=== PATIENT | female | born 1990 | race Two or more races ===

== ENCOUNTER 2017-11-02 17:00 | Emergency (ER) | payer MEDICAID ==
--- NOTE | 2017-11-02 17:20 | ER Document Report ---
ED GI/ - General Chief Complaint: Abdominal Pain Stated Complaint: ABDOMINAL PAIN Time Seen by Provider: 11/02/17 17:20 Mode of Arrival: Ambulatory Information source: Patient Notes: 27-year-old smoker that smoker that smokes marijuana daily is complaining of upper abdominal pain and or low abdominal pain with nausea for 3 months, constant, also has some low back spasms. She came in today because she thought that it would go away and she cannot see her primary care doctor until next week. No vomiting or diarrhea. She was constipated once last week. She has irregular menses and had one this month and had brown discharge after. Her vaginal discharge is heavy without an odor. She has urinary frequency with no dysuria or urgency. No fever or chills. . Denies surgery. No history of cholecystitis, cholelithiasis, pancreatitis, Crohn's or colitis. No history of ovarian cyst, STI's or endometriosis. TRAVEL OUTSIDE OF THE [place] IN LAST 30 DAYS: No - Related Data Allergies/Adverse Reactions: No Known Allergies Allergy (Verified 11/02/17 17:03) Past Medical History - General Information source: Patient - Social History Smoking Status: Current Every Day Smoker Drug Abuse: Marijuana - daily Lives with: Family Family History: Reviewed & Not Pertinent - Medical History Medical History: Negative Surgical Hx: Negative Review of Systems - Review of Systems Constitutional: No symptoms reported EENT: No symptoms reported Cardiovascular: No symptoms reported Respiratory: No symptoms reported Gastrointestinal: See HPI Genitourinary: No symptoms reported Female Genitourinary: No symptoms reported Musculoskeletal: No symptoms reported Skin: No symptoms reported Hematologic/Lymphatic: No symptoms reported Neurological/Psychological: No symptoms reported Physical Exam - Vital signs Vitals: Temp Pulse Resp BP Pulse Ox 97.8 F 80 16 106/64 100 11/02/17 17:19 11/02/17 17:19 11/02/17 17:19 11/02/17 17:19 11/02/17 17:19 Interpretation: Normal - General General appearance: Appears well, Alert In distress: None - HEENT Head: Normocephalic, Atraumatic Eyes: Normal Conjunctiva: Normal. No: Icteric Pupils: PERRL Mucous membranes: Normal Neck: Supple. No: Thyromegally - Respiratory Respiratory status: No respiratory distress Chest status: Nontender Breath sounds: Normal Chest palpation: Normal - Cardiovascular Rhythm: Regular Heart sounds: Normal auscultation Murmur: No - Abdominal Inspection: Normal Distension: No distension Bowel sounds: Normal Tenderness: Tender - mild epigastirc, and bilateral upper, right more than left Organomegaly: No organomegaly - Back Back: Normal, Nontender. No: CVA tenderness - Extremities General upper extremity: Normal inspection, Nontender, Normal color, Normal ROM , Normal temperature General lower extremity: Normal inspection, Nontender, Normal color, Normal ROM , Normal temperature, Normal weight bearing. No: Ravi's sign - Neurological Neuro grossly intact: Yes Cognition: Normal Orientation: AAOx4 Edie Coma Scale Eye Opening: Spontaneous [place] Coma Scale Verbal: Oriented Edie Coma Scale Motor: Obeys Commands [place] Coma Scale Total: 15 Speech: Normal Motor strength normal: LUE, RUE, LLE, RLE Sensory: Normal - Psychological Associated symptoms: Normal affect, Normal mood - Skin Skin Temperature: Warm Skin Moisture: Dry Skin Color: Normal Skin irregularity: negative: Rash Course - Re-evaluation Re-evalutation: 11/02/17 18:43 CBC and chemistry are normal, test is negative, urine specific gravity 1.025 with 8 RBCs and 1 WBCs trace of bacteria, urine culture is pending Wet prep shows 4+ bacteria and 4+ epithelial cells so I will treat for bacterial vaginosis. The limited ultrasound of the abdomen shows fatty infiltration of the liver, no gallstones, no pericholecystic fluid. I will have her follow-up with gastroenterology if the abdominal pain persists. The gonorrhea and Chlamydia test are pending. Will offer treatment pending the results. 11/02/17 18:44 Patient wants to take the treatment for possible gonorrhea and chlamydia now she will call me back in 3 hours for the results. - Vital Signs Vital signs: Temp Pulse Resp BP Pulse Ox 97.8 F 80 16 106/64 100 11/02/17 17:22 11/02/17 17:22 11/02/17 17:22 11/02/17 17:22 11/02/17 17:22 - Laboratory Result Diagrams: 11/02/17 17:55 11/02/17 17:55 Laboratory results interpreted by me: 11/02/17 17:55 Ur Leukocyte Esterase TRACE H Discharge - Discharge Clinical Impression: upper abodminal pain, Bacterial vaginosis Lumbar back sprain Qualifiers: Encounter type: initial encounter Qualified Code(s): S33.5XXA - Sprain of ligaments of lumbar spine, initial encounter Condition: Good Disposition: HOME, SELF-CARE Instructions: Low Back Pain ([facility]), Acetaminophen, Metronidazole ([facility]), Rocephin ([facility]), Azithromycin ([facility]), Gonorrhea ([facility]), Chlamydia ([facility]), Evaluation of Upper Abdominal Pain ([facility]) Additional Instructions: Call me in 3 hours for the gonorrhea and Chlamydia test results, No alcohol when you take the metronidazole See climate change risk assessor about the upper abdominal pain Tylenol up to 4000 mg a day for back muscle strain Return to the emergency room for any worsening of symptoms Copy of the imaging and lab results given to you Urine culture is pending Prescriptions: Metronidazole [Flagyl 500 mg Tablet] 500 mg PO BID #14 tablet Referrals: DARWIN MURCIA MD [ACTIVE STAFF] - Follow up as needed
[2017-11-02 18:14] LABS: BACTERIA (WET MOUNT) 4+ BACTERIA SEEN; EPITHELIALS (WET MOUNT) 4+ EPITHELIALS SEEN; T.VAGINALIS (WET MOUNT) NO TRICHOMONAS SEEN; WBCS (WET MOUNT) FEW WBCS SEEN; YEAST (WET MOUNT) NO YEAST SEEN
[2017-11-02 18:15] LABS: ABSOLUTE BASOPHILS # (AUTO) 0.1 10^3/uL (0.0-0.2); ABSOLUTE EOSINOPHILS # (AUTO) 0.1 10^3/uL (0.0-0.6); ABSOLUTE LYMPHOCYTES (AUTO) 3.5 10^3/uL (0.5-4.7); ABSOLUTE MONOCYTES (AUTO) 0.5 10^3/uL (0.1-1.4); ABSOLUTE NEUT (AUTO) 4.5 10^3/uL (1.7-8.2); EOSINOPHILS % (AUTO) 0.9 % (0-6); HEMOGLOBIN 15.5 g/dL (12.0-15.5); LYMPHOCYTES % (AUTO) 40.4 % (13-45); MEAN CORPUSCULAR HEMOGLOBIN 30.3 pg (27.0-33.4); MEAN CORPUSCULAR HGB CONC 33.8 g/dL (32.0-36.0); MEAN CORPUSCULAR VOLUME 90 fl (80-97); MONOCYTES % (AUTO) 5.8 % (3-13); PLATELET COUNT 345 10^3/uL (150-450); RED BLOOD COUNT 5.13 10^6/uL (3.72-5.28); RED CELL DISTRIBUTION WIDTH 13.1 % (11.5-14.0); SEGMENTED NEUTROPHILS % (AUTO) 51.9 % (42-78); TOTAL CELLS COUNTED % (AUTO) 100 %; WHITE BLOOD COUNT 8.7 10^3/uL (4.0-10.5)
--- NOTE | 2017-11-02 18:25 | RADIOLOGY REPORT (SQ) ---
EXAM DESCRIPTION: U/S ABDOMEN LIMITED W/O DOP COMPLETED DATE/TIME: 11/02/2017 6:14 pm REASON FOR STUDY: epigastric, RUQ abd tender COMPARISON: None. TECHNIQUE: Dynamic and static grayscale images acquired of the abdomen and recorded on PACS. Additio nal selected color Doppler and spectral images recorded. LIMITATIONS: None. FINDINGS: PANCREAS: No masses. No peripancreatic edema or fluid collections. LIVER: Echotexture is coarse with increased echogenicity consistent with fatty infiltration. LIVER VASCULATURE: Normal directional flow of the main portal vein and hepatic veins. GALLBLADDER: No gallstones. Normal wall thickness. No pericholecystic fluid. ULTRASOUND-DETECTED COUGHLIN'S SIGN: Negative. INTRAHEPATIC DUCTS AND COMMON DUCT: CBD and intrahepatic ducts normal caliber. No filling defects. INFERIOR VENA CAVA: Normal flow. AORTA: No aneurysm. RIGHT KIDNEY: Normal size. Normal echogenicity. No solid or suspicious masses. No hydronephrosis. No calcifications. PERITONEAL AND RIGHT PLEURAL SPACE: No ascites or effusions. OTHER: No other significant finding. IMPRESSION: FATTY INFILTRATION OF THE LIVER. No gallstones. No pericholecystic fluid. TECHNICAL DOCUMENTATION: JOB ID: [id number] [email or web address]- All Rights Reserved Reading location - IP/workstation name: [email or web address]
[2017-11-02 18:33] LABS: ALANINE AMINOTRANSFERASE 27 U/L (9-52); ALBUMIN 4.3 g/dL (3.5-5.0); ALKALINE PHOSPHATASE 50 U/L (38-126); ANION GAP 12 (5-19); ASPARTATE AMINO TRANSFERASE 30 U/L (14-36); BILIRUBIN,DIRECT 0.3 mg/dL (0.0-0.4); BILIRUBIN,TOTAL 0.4 mg/dL (0.2-1.3); BLOOD UREA NITROGEN 12 mg/dL (7-20); CALCIUM 9.8 mg/dL (8.4-10.2); CARBON DIOXIDE 26 mmol/L (22-30); CHLORIDE 106 mmol/L (98-107); GLUCOSE 92 mg/dL (75-110); LIPASE 160.3 U/L (23-300); POTASSIUM 4.1 mmol/L (3.6-5.0); SODIUM 144.3 mmol/L (137-145); TOTAL PROTEIN 7.7 g/dL (6.3-8.2)
[2017-11-02 18:34] LABS: APPEARANCE,URINE SLIGHTLY-CLOUDY; BILIRUBIN,URINE NEGATIVE (NEGATIVE); COLOR,URINE YELLOW; GLUCOSE, URINE NEGATIVE (NEGATIVE); KETONES,URINE NEGATIVE (NEGATIVE); LEUKOCYTE ESTERASE,URINE TRACE (NEGATIVE); NITRITE,URINE NEGATIVE (NEGATIVE); PROTEIN,URINE NEGATIVE (NEGATIVE); URINE SPECIFIC GRAVITY 1.025; UROBILINOGEN,URINE NEGATIVE mg/dL (<2.0)
[2017-11-02] MEDS ORDERED: LIDOCAINE 1% INJ-PF (10 MG/ML) 30 ML SDV INJ ONE (18:54)
[2017-11-02] MEDS ORDERED: CEFTRIAXONE INJ 250 MG VIAL IM ONE (18:54)
[2017-11-02] MEDS ORDERED: ONDANSETRON 4 MG TAB.RAPDIS PO ONE (18:55)
[2017-11-02] MEDS ORDERED: AZITHROMYCIN 250 MG TABLET PO ONE (18:55)
[2017-11-02 19:36] VITALS: BP 113/78
[2017-11-02 19:38] LABS: CHLAM PCR NOT DETECTED (NOT DETECT); GON PCR NOT DETECTED (NOT DETECT)
== END 2017-11-02 19:35 | disposition home or self-care (01) ==
LOC: ER 17:00
DX: N76.0 Acute vaginitis (principal); S33.5XXA Sprain of ligaments of lumbar spine, initial encounter; B96.89 Other specified bacterial agents as the cause of diseases classified elsewhere; R10.10 Upper abdominal pain, unspecified; R10.30 Lower abdominal pain, unspecified; R11.0 Nausea; R35.0 Frequency of micturition; F17.200 Nicotine dependence, unspecified, uncomplicated; X58.XXXA Exposure to other specified factors, initial encounter
CPT/HCPCS: 99284; 96372; 36415; 87086; 87210; 83690; 84703; 85025; 80053; 81001; 87491; 87591; 76705; Q0144; S0119; J3490; J0696

== ENCOUNTER 2019-08-10 00:05 | Outpatient (CLI) | payer MEDICAID ==
[2019-08-10] MEDS ORDERED: PENICILLIN G POTASSIUM 5,000,000 UNIT in DEXTROSE 5%-WATER 100 ML IV ONE (00:24)
[2019-08-10] MEDS ORDERED: PENICILLIN G-K 5 MILLION UNIT VIAL ONE (00:27)
[2019-08-10 00:33] LABS: APPEARANCE,URINE SLIGHTLY-CLOUDY; BILIRUBIN,URINE NEGATIVE (NEGATIVE); COLOR,URINE YELLOW; GLUCOSE, URINE NEGATIVE (NEGATIVE); KETONES,URINE NEGATIVE (NEGATIVE); LEUKOCYTE ESTERASE,URINE LARGE (NEGATIVE); NITRITE,URINE NEGATIVE (NEGATIVE); PROTEIN,URINE NEGATIVE (NEGATIVE); URINE SPECIFIC GRAVITY 1.017; UROBILINOGEN,URINE NEGATIVE mg/dL (<2.0)
[2019-08-10 01:33] LABS: URINE AMPHETAMINES SCREEN NEGATIVE; URINE BARBITURATES SCREEN NEGATIVE; URINE BENZODIAZEPINES SCREEN NEGATIVE; URINE COCAINE SCREEN NEGATIVE; URINE MARIJUANA (THC) SCREEN NEGATIVE; URINE METHADONE SCREEN NEGATIVE; URINE PHENCYCLIDINE SCREEN NEGATIVE
[2019-08-10] MEDS ORDERED: HYDROXYZINE PAMOATE 50 MG CAPSULE PO ONE (02:27)
[2019-08-10] MEDS ORDERED: HYDROXYZINE PAMOATE 50 MG CAPSULE ONE (02:37)
--- NOTE | 2019-08-10 03:09 | Non Stress Test Report ---
Non Stress Test Datetime Report Generated by CPN: 08/10/2019 03:09 INDICATION Indication for Study (NST) Other: labor check URINE RESULTS Urine Protein, NST: Negative Urine Ketones - NST: Negative Urine Glucose - NST: Negative Urine Blood - NST: Negative MONITORING Time on Monitor: 08/10/2019 00:19 Time off Monitor: 08/10/2019 02:32 NST Duration: 133 NST INTERVENTIONS NST Interventions: PO Hydration; IV Fluids Physician Notified NST: Crane BABY A: [id number] BABY A Movement : Present Contraction Frequency : 3-7 FHR Baseline : 140 Accelerations : 15X15 Decelerations : None Variability : Moderate 6-25bpm NST Review: Meets Criteria for Reactive NST NST Review and Verified By : B. Ring RN NST Results: Reactive NST REPORT Report Trigger: Send Report
== END 2019-08-10 02:47 | disposition home or self-care (01) ==
LOC: LC 00:05
PROVIDERS: ATTEND Student in an Organized Health Care Education/Training Program
DX: O47.1 False labor at or after 37 completed weeks of gestation (principal); O48.0 Post-term pregnancy; Z3A.40 40 weeks gestation of pregnancy
CPT/HCPCS: 59025; 81005; 80307; J3490; J2540; J7060

== ENCOUNTER 2019-08-10 12:10 | Inpatient (IN) | payer MEDICARE, MEDICAID ==
[2019-08-10] MEDS ORDERED: OXYTOCIN/0.9 % SODIUM CHLORIDE 30 UNIT/500 ML RTUINJ ONE (12:20)
[2019-08-10] MEDS ORDERED: PENICILLIN G-K 5 MILLION UNIT VIAL ONE ×2 (12:20→16:35)
[2019-08-10] MEDS ORDERED: MISOPROSTOL 0.2 MG TABLET ONE (12:20)
[2019-08-10] MEDS ORDERED: LIDOCAINE 1% INJ-PF (10 MG/ML) 30 ML SDV ONE (12:20)
[2019-08-10] MEDS ORDERED: RINGERS SOLUTION,LACTATED 1,000 ML IV ONE (12:32)
[2019-08-10] MEDS ORDERED: PENICILLIN G POTASSIUM 5,000,000 UNIT in DEXTROSE 5%-WATER 100 ML IV ONE (12:32)
[2019-08-10 13:06] LABS: APPEARANCE,URINE SLIGHTLY-CLOUDY; BILIRUBIN,URINE NEGATIVE (NEGATIVE); COLOR,URINE YELLOW; GLUCOSE, URINE NEGATIVE (NEGATIVE); KETONES,URINE NEGATIVE (NEGATIVE); LEUKOCYTE ESTERASE,URINE LARGE (NEGATIVE); NITRITE,URINE NEGATIVE (NEGATIVE); PROTEIN,URINE NEGATIVE (NEGATIVE); URINE SPECIFIC GRAVITY 1.004; UROBILINOGEN,URINE NEGATIVE mg/dL (<2.0)
[2019-08-10 13:08] LABS: ABSOLUTE BASOPHILS # (AUTO) 0.2 10^3/uL (0.0-0.2); ABSOLUTE MONOCYTES (AUTO) 0.7 10^3/uL (0.1-1.4); ABSOLUTE NEUT (AUTO) 12.1 10^3/uL (1.7-8.2); EOSINOPHILS % (AUTO) 0.1 % (0-6); HEMATOCRIT 32.7 % (36.0-47.0); HEMOGLOBIN 11.1 g/dL (12.0-15.5); LYMPHOCYTES % (AUTO) 13.4 % (13-45); MEAN CORPUSCULAR HEMOGLOBIN 28.5 pg (27.0-33.4); MEAN CORPUSCULAR HGB CONC 33.8 g/dL (32.0-36.0); MEAN CORPUSCULAR VOLUME 84 fl (80-97); MONOCYTES % (AUTO) 4.5 % (3-13); PLATELET COUNT 365 10^3/uL (150-450); RED BLOOD COUNT 3.88 10^6/uL (3.72-5.28); RED CELL DISTRIBUTION WIDTH 13.8 % (11.5-14.0); TOTAL CELLS COUNTED % (AUTO) 100 %
[2019-08-10 13:27] LABS: URINE AMPHETAMINES SCREEN NEGATIVE; URINE BARBITURATES SCREEN NEGATIVE; URINE BENZODIAZEPINES SCREEN NEGATIVE; URINE COCAINE SCREEN NEGATIVE; URINE MARIJUANA (THC) SCREEN NEGATIVE; URINE METHADONE SCREEN NEGATIVE; URINE PHENCYCLIDINE SCREEN NEGATIVE
[2019-08-10] MEDS ORDERED: OXYTOCIN/0.9 % SODIUM CHLORIDE 30 UNIT/500 ML RTUINJ IV PRN ×2 (14:35→22:22)
--- NOTE | 2019-08-10 14:44 | Admission Physical ---
Datetime Report Generated by CPN: 08/10/2019 14:43 CURRENT ADMISSION Chief Complaint: Uterine Contractions Indication for Induction: Not Applicable Admit Impression : Term, Intrauterine ; Active Labor Admit Plan: Admit to Unit; Initiate Labor Protocol ALLERGIES Medication Allergies: No Medication Allergies: No Known Allergies (08/10/2019) Latex: No Latex Allergies OBSTETRICAL HISTORY EDC: 08/10/2019 00:00 : 2 Para: 1 Term: 1 : 0 SAB: 0 IAB: 0 Ectopic: 0 Livin Cesareans: 0 VBACs: 0 Multiple Births: 0 Gestational Diabetes: No Rh Sensitization: No Incompetent Cervix: No THUAN: No Infertility: No ART Treatment: No Uterine Anomaly: No IUGR: No Hx Previous C/S: No Macrosomia: No Hx Loss/Stillborn: No PIH: No Hx : No Placenta Previa/Abruption: No Depression/PP Depression: No PTL/PROM: No Post Hemorrhage: No Current Procedures: Ultrasound Obstetrical History Comments: 2011 baby girl G2- current SEE RECORDS Alcohol: No Marijuana : No Cocaine: No Other Illicit Drugs: No Cigarettes: Former Smoker. [id number] MEDICAL HISTORY Diabetes: No Blood Transfusion: No Pulmonary Disease (Asthma, TB): No Breast Disease: No Hypertension: No Spark Plug Tester Surgery: No Heart Disease: No Hosp/Surgery: Yes Autoimmune Disorder: No Anesthetic Complications: No Kidney Disease: No Abnormal Pap Smear: No Neuro/Epilepsy: No Psychiatric Disorders: No Other Medical Diseases: No Hepatitis/Liver Disease: No Significant Family History: No Varicosities/Phlebitis: No Trauma/Violence : No Thyroid Dysfunction: No Medical History Comments: childbirth INFECTIOUS HISTORY Gonorrhea: No Genital Herpes: No Chlamydia: No Tuberculosis: No Syphilis: No Hepatitis: No HIV/AIDS Exposure: No Rash or Viral Illness: No HPV: No Infectious History Comments: +march 2019 PHYSICAL EXAM General: Normal HEENT: Normal Neurologic: Normal Thyroid: Deferred Heart: Normal Lungs: Normal Breast: Deferred Back: Normal Abdomen: Normal Genitourinary Exam: Normal Extremities: Normal DTRs: Normal Pelvic Type: Adequate Vital Signs: Reviewed VAGINAL EXAM Dilatation: 5 Effacement: 90 Station: -1 Contraction Comments: irreg MEMBRANES Membranes: Intact FETUS A EGA: 40.0 Monitoring: External US FHR- Baseline: 145 Variability: Moderate 6-25bpm Accelerations: 15X15 Decelerations: None FHR Category: Category I Presentation: Vertex Admit Comment: 29yo at 40+0ega presents for regular uterine contractions. Cvx 5-6/90/0 with bb. GBS pos - received 1 dose of PCN last night. Will start PCN again. + trich on last pap - good MALLORY. On medicare for disabilty for eczema per chart. Anticipate . PLANS FOR LABOR AND DELIVERY Labor and Delivery: None Pain Management: Natural Feeding Preference: Formula Circumcision: Yes INFORMED CONSENT Informed Consent Obtained: Vaginal Delivery; Risks, Benefits and Alternatives Discussed Signature: with User ID: [email or web address]
[2019-08-10] MEDS: RINGERS SOLUTION,LACTATED 1,000 ML IV PRN ×2 (16:46→18:05)
[2019-08-10] MEDS: PENICILLIN G POTASSIUM 2,500,000 UNIT in DEXTROSE 5%-WATER 50 ML IV SCH ×2 (16:48→20:30)
[2019-08-10] MEDS ORDERED: FAMOTIDINE INJ/PF 20 MG/2 ML SDV IV ONE ×2 (17:45→17:47)
[2019-08-10] MEDS ORDERED: ONDANSETRON HCL INJ/PF 4 MG/2 ML SDV IV PRN (17:45)
[2019-08-10] MEDS ORDERED: EPHEDRINE SULFATE INJ 50 MG/1 ML AMPULE ONE (17:46)
[2019-08-10] MEDS ORDERED: BUPIVACAINE HCL 0.25 % INJ/PF (2.5 MG/1 ML) 30 ML VIAL ONE (17:47)
[2019-08-10] MEDS ORDERED: FENTANYL/BUPIVACAINE/NS/PF 300 MCG/150 ML RTUINJ EPI ONE (17:47)
[2019-08-10] MEDS ORDERED: ONDANSETRON HCL INJ/PF 4 MG/2 ML SDV ONE (17:47)
[2019-08-10] MEDS ORDERED: NA PHOS,M-B/NA PHOS,DI-BA (ADULT) 133 ML ENEMA PR PRN (22:22)
[2019-08-10] MEDS ORDERED: GLYCERIN/WITCH HAZEL LEAF 1 EACH MED..WIPE TP PRN (22:22)
[2019-08-10] MEDS ORDERED: PROMETHAZINE HCL INJ 25 MG/1 ML VIAL IV PRN (22:22)
[2019-08-10] MEDS ORDERED: ACETAMINOPHEN WITH CODEINE #3 TABLET PO PRN (22:22)
[2019-08-10] MEDS ORDERED: MAGNESIUM HYDROXIDE SUSP 30 ML UDCUP PO PRN (22:22)
[2019-08-10] MEDS ORDERED: ACETAMINOPHEN 325 MG TABLET PO PRN (22:22)
[2019-08-10] MEDS ORDERED: PROMETHAZINE HCL 25 MG SUPP.RECT PR PRN (22:22)
[2019-08-10] MEDS ORDERED: DIPHENHYDRAMINE HCL 25 MG CAPSULE PO PRN (22:22)
[2019-08-10] MEDS ORDERED: DIPH/PERTUSS(ACELL)/TETANUS VAC/PF 0.5 ML SYR (>=10YO) IM PRN (22:22)
[2019-08-10] MEDS ORDERED: BENZOCAINE/MENTHOL AEROSOL SPRAY 56 ML TOP PRN (22:22)
[2019-08-10] MEDS ORDERED: PROMETHAZINE HCL 25 MG TABLET PO PRN (22:22)
[2019-08-10] MEDS ORDERED: ZOLPIDEM TARTRATE 5 MG TABLET PO PRN (22:22)
[2019-08-10] MEDS ORDERED: PSEUDOEPHEDRINE HCL 30 MG TABLET PO PRN (22:22)
[2019-08-10] MEDS ORDERED: MEASLES,MUMPS&RUBELLA VACC/PF 0.5 ML VIAL SUBCUT PRN (22:22)
[2019-08-10] MEDS ORDERED: DIBUCAINE 1% OINTMENT 28 GM TP PRN (22:22)
--- NOTE | 2019-08-10 22:24 | Delivery Summary ---
Del Sum A-C Datetime Report Generated by CPN: 08/10/2019 22:24 DELIVERY PERSONNEL DELIVERY PERSONNEL: [id number] Delivery Doctor:: Mary Crane MD SENIOR MANAGER CREATIVE SERVICES:: Tylor Conner CRNA Labor and Delivery Nurse:: Abhinva Kee RNpotato inspector Nurse:: Pennie Pink RNC Nursery Nurse:: Eleanor West RN Nursery Nurse:: Constance Finney RN Department Helper/SHORE WORKER: Ashleigh Green, ST MATERNAL INFORMATION Delivery Anesthesia: Epidural Medications After Delivery: Pitocin 30 Units in 500ml NS/D5W Maternal Complications: None LABOR SUMMARY EDC: 08/10/2019 00:00 No. Babies in Womb: 1 Attempted: No Labor Anesthesia: Epidural LABOR INFORMATION Reason for Induction: Not Applicable Onset of Labor: 08/10/2019 06:00 Complete Dilatation: 08/10/2019 20:57 Oxytocin: N/A Group B Beta Strep: positive Antibiotics # of Doses: 3 Antibiotics Time of Last Dose: 2032 Name of Antibiotic Given: PCN Steroids Given: None Reason Steroids Not Administered: Not Applicable MEMBRANES Membranes Rupture Method: Artificial Rupture of Membranes: 08/10/2019 14:29 Length of Rupture (hr): 6.97 Amniotic Fluid Color: Light Meconium Amniotic Fluid Amount: Small Amniotic Fluid Odor: Normal STAGES OF LABOR Stage 1 hr: 14 Stage 1 min: 57 Stage 2 hr: 0 Stage 2 min: 30 Stage 3 hr: 0 Stage 3 min: 2 Total Time in Labor hr: 15 Total Time in Labor min: 29 VAGINAL DELIVERY Episiotomy: None Laceration #1: None Laceration Extension #1: N/A Laceration Repair: Not Applicable Sponge Count Correct: Yes; Vaginal Sweep Performed Sharps Count Correct: Yes CSECTION DELIVERY Primary Indication: N/A Secondary Indication: N/A CSection Incidence: N/A Labor: N/A Elective: N/A CSection Incision: N/A BABY A INFORMATION Infant Delivery Date/Time: 08/10/2019 21:27 Method of Delivery: Vaginal Nurse Controlled Delivery: No Born in Route : No : N/A Forceps: N/A Vacuum Extraction: N/A Shoulder Dystocia : No PRESENTATION/POSITION BABY A Presentation: Cephalic Cephalic Presentation: Vertex Vertex Position: Left Occipital Anterior Breech Presentation: N/A PLACENTA INFORMATION BABY A Placenta Delivery Time : 08/10/2019 21:29 Placenta Method of Delivery: Spontaneous Placenta Status: Delivered SCORES BABY A Heart Rate 1 min: >100 bpm Resp Effort 1 min: Good Cry Reflex Irritability 1 min: Cough or Sneeze or Pulls Away Muscle Tone 1 min: Active Motion Color 1 min: Blue/Pale Resuscitation Effort 1 min: Tactile Stimulation SCORE 1 MIN: 8 Heart Rate 5 min: >100 bpm Resp Effort 5 min: Good Cry Reflex Irritability 5 min: Cough or Sneeze or Pulls Away Muscle Tone 5 min: Active Motion Color 5 min: Body [place], Extremities Blue Resuscitation Effort 5 min: Tactile Stimulation SCORE 5 MIN: 9 INFANT INFORMATION BABY A Gestational Age at Delivery: 40.0 Gestational Status: Full Term- 39- 40.6 Weeks Infant Outcome : Liveborn Condition : Stable Sex: Male IDENTIFICATION BABY A Verification Date/Time: 08/10/2019 21:33 ID Band Number: [id number] Mother's Name Verified: Yes Infant RN Verifying Infant: L Parlor HYDROLOGICAL TECHNICAL OFFICER/S Green ST WEIGHT/LENGTH BABY A Birthweight (gm): 3663 Weight (lb): 8 Weight (oz): 1 Infant Length (in): 21.00 Length (cm): 53.34 CORD INFORMATION BABY A No. Cord Vessels: 3 Nuchal Cord : Around Neck x1, Loose Cord Blood Taken: Yes-For Storage (Mom's Blood type +) Infant Suction: Mouth; Nose ASSESSMENT BABY A Complications: Meconium Physical Findings at Delivery: Within Normal Limits Infant Respirations: Appears Normal Skin to Skin: Yes Skin to Skin Time (min): 60 Fundraiser/ALS Called : No Infant Care By: Claribel West RN Transferred To: Remains with Mother BABY B INFORMATION : N/A
[2019-08-10] MEDS ORDERED: IBUPROFEN 800 MG TABLET ONE (23:28)
[2019-08-11] MEDS: PENICILLIN G POTASSIUM 2,500,000 UNIT in DEXTROSE 5%-WATER 50 ML IV SCH (00:58)
[2019-08-11] MEDS: IBUPROFEN 800 MG TABLET PO SCH ×3 (05:03→22:21)
[2019-08-11] MEDS: ACETAMINOPHEN WITH CODEINE #3 TABLET PO PRN ×3 (06:49→20:33)
[2019-08-11 07:05] LABS: HEMATOCRIT 32.7 % (36.0-47.0); HEMOGLOBIN 10.9 g/dL (12.0-15.5); MEAN CORPUSCULAR HEMOGLOBIN 28.5 pg (27.0-33.4); MEAN CORPUSCULAR HGB CONC 33.5 g/dL (32.0-36.0); MEAN CORPUSCULAR VOLUME 85 fl (80-97); PLATELET COUNT 365 10^3/uL (150-450); RED BLOOD COUNT 3.85 10^6/uL (3.72-5.28); RED CELL DISTRIBUTION WIDTH 13.7 % (11.5-14.0); WHITE BLOOD COUNT 21.7 10^3/uL (4.0-10.5)
[2019-08-11 07:47] VITALS: BP 106/61
--- NOTE | 2019-08-11 09:04 | PDOC PROGRESS REPORT ---
Subjective-OB Progress Note for:: 08/11/19 Subjective: OOB in chair, bottle feeding, voiding, no c/o Physical Exam (OB) Vital Signs: Temp Pulse Resp BP Pulse Ox 98.1 F 80 18 106/61 100 08/11/19 07:17 08/11/19 07:17 08/11/19 07:17 08/11/19 07:17 08/11/19 07:17 Intake & Output 08/10/19 08/11/19 08/12/19 06:59 06:59 06:59 Intake Total 165 Balance 165 Weight 98.5 kg - PIH/Pre-Eclampsia Clonus: Negative Headache: Absent Epigastric Pain: No Visual Changes: No - Lochia Lochia Amount: Small 10-25 ml Lochia Color: Rubra/Red - Abdomen Description: Soft, Round Hernia Present: No Fundal Description: Firm, Midline Fundal Height: u/u - u/2 Objective-Diagnostic Laboratory: 08/11/19 06:40 08/10/19 08/10/19 08/10/19 12:50 12:50 12:50 WBC 15.0 H RBC 3.88 Hgb 11.1 L Hct 32.7 L MCV 84 MCH 28.5 MCHC 33.8 RDW 13.8 Plt Count 365 Seg Neutrophils % 81.0 H Urine Color YELLOW Urine Appearance SLIGHTLY-CLOUDY Urine pH 7.0 Ur Specific [place] 1.004 Urine Protein NEGATIVE Urine Glucose (UA) NEGATIVE Urine Ketones NEGATIVE Urine Blood SMALL H Urine Nitrite NEGATIVE Ur Leukocyte Esterase LARGE H Blood Type A POSITIVE Antibody Screen NEGATIVE 08/11/19 06:40 WBC 21.7 H RBC 3.85 Hgb 10.9 L Hct 32.7 L MCV 85 MCH 28.5 MCHC 33.5 RDW 13.7 Plt Count 365 Seg Neutrophils % Urine Color Urine Appearance Urine pH Ur Specific [place] Urine Protein Urine Glucose (UA) Urine Ketones Urine Blood Urine Nitrite Ur Leukocyte Esterase Blood Type Antibody Screen Assessment and Plan(PN) - Assessment and Plan (1) Meconium in amniotic fluid Is this a current diagnosis for this admission?: Yes (2) Vaginal delivery Is this a current diagnosis for this admission?: Yes (3) Carrier of group B Streptococcus Is this a current diagnosis for this admission?: Yes (4) Active labor at term Is this a current diagnosis for this admission?: Yes - Time Spent with Patient Time with patient: Less than 15 minutes Medications reviewed and adjusted accordingly: Yes - Disposition Anticipated Discharge: Home Within: within 24 hours
[2019-08-11] MEDS: FERROUS SULFATE 325 MG TABLET PO SCH ×2 (09:48→17:38)
[2019-08-11] MEDS: FAMOTIDINE 20 MG TABLET PO SCH ×2 (09:48→22:21)
[2019-08-11] MEDS: DOCUSATE SODIUM 100 MG CAPSULE PO SCH ×2 (09:49→17:38)
[2019-08-11] MEDS: PRENATAL VITAMIN W DHA CAPSULE PO SCH (09:49)
[2019-08-11] MEDS: SENNOSIDES/DOCUSATE 8.6-50 MG 1 EACH TABLET PO SCH (09:49)
[2019-08-11] MEDS ORDERED: DIPH/PERTUSS(ACELL)/TETANUS VAC/PF 0.5 ML SYR (>=10YO) IM PRN (12:00)
[2019-08-11] MEDS ORDERED: PROMETHAZINE HCL INJ 25 MG/1 ML VIAL IV PRN (12:00)
[2019-08-11] MEDS ORDERED: MEASLES,MUMPS&RUBELLA VACC/PF 0.5 ML VIAL SUBCUT PRN (12:00)
[2019-08-12] MEDS: ACETAMINOPHEN WITH CODEINE #3 TABLET PO PRN (02:35)
[2019-08-12] MEDS: IBUPROFEN 800 MG TABLET PO SCH ×2 (05:15→13:37)
[2019-08-12] MEDS: SENNOSIDES/DOCUSATE 8.6-50 MG 1 EACH TABLET PO SCH (10:01)
[2019-08-12] MEDS: PRENATAL VITAMIN W DHA CAPSULE PO SCH (10:01)
[2019-08-12] MEDS: FERROUS SULFATE 325 MG TABLET PO SCH (10:01)
[2019-08-12] MEDS: DOCUSATE SODIUM 100 MG CAPSULE PO SCH (10:01)
[2019-08-12] MEDS: FAMOTIDINE 20 MG TABLET PO SCH (10:01)
--- NOTE | 2019-08-12 10:17 | PDOC DISCHARGE SUMMARY ---
Impression - Admit/DC Date/PCP Admission Date/Primary Care Provider: 08/10/19 12:37 Discharge Date: 08/12/19 - PP Day #2, doing well, ready to go home today, A+, Rubella Immune, bottlefeeding - Additional Information Resuscitation Status: Full Code Discharge Diet: As Tolerated, Regular Discharge Activity: Activity As Tolerated, No Lifting Over 10 Pounds, Pelvic Rest Prescriptions: Ibuprofen [Motrin 800 mg Tablet] 800 mg PO Q8 #60 tablet Vit/Dha [ Multi + Dha Capsule] 1 cap PO DAILY 90 Days #90 capsule Home Medications: Ibuprofen [Motrin 800 mg Tablet] 800 mg PO Q8 #60 tablet 08/12/19 Vit/Dha [ Multi + Dha Capsule] 1 cap PO DAILY 90 Days #90 capsule 08/12/19 HPI Reason(s) for Admission: Onset of Labor Procedures: Ultrasound Intrapartum Procedure(s): Spontaneous Vaginal Delivery Complication(s): Other - none Hospital Course Hospital Course: routine Results Laboratory Results: WBC 21.7 10^3/uL (4.0-10.5) H 08/11/19 06:40 RBC 3.85 10^6/uL (3.72-5.28) 08/11/19 06:40 Hgb 10.9 g/dL (12.0-15.5) L 08/11/19 06:40 Hct 32.7 % (36.0-47.0) L 08/11/19 06:40 MCV 85 fl (80-97) 08/11/19 06:40 MCH 28.5 pg (27.0-33.4) 08/11/19 06:40 MCHC 33.5 g/dL (32.0-36.0) 08/11/19 06:40 RDW 13.7 % (11.5-14.0) 08/11/19 06:40 Plt Count 365 10^3/uL (150-450) 08/11/19 06:40 Lymph % (Auto) 13.4 % (13-45) 08/10/19 12:50 [place] % (Auto) 4.5 % (3-13) 08/10/19 12:50 Eos % (Auto) 0.1 % (0-6) 08/10/19 12:50 Baso % (Auto) 1.0 % (0-2) 08/10/19 12:50 Absolute Neuts (auto) 12.1 10^3/uL (1.7-8.2) H 08/10/19 12:50 Absolute Lymphs (auto) 2.0 10^3/uL (0.5-4.7) 08/10/19 12:50 Absolute Monos (auto) 0.7 10^3/uL (0.1-1.4) 08/10/19 12:50 Absolute Eos (auto) 0.0 10^3/uL (0.0-0.6) 08/10/19 12:50 Absolute Basos (auto) 0.2 10^3/uL (0.0-0.2) 08/10/19 12:50 Seg Neutrophils % 81.0 % (42-78) H 08/10/19 12:50 Urine Color YELLOW 08/10/19 12:50 Urine Appearance SLIGHTLY-CLOUDY 08/10/19 12:50 Urine pH 7.0 (5.0-9.0) 08/10/19 12:50 Ur Specific [place] 1.004 08/10/19 12:50 Urine Protein NEGATIVE mg/dL (NEGATIVE) 08/10/19 12:50 Urine Glucose (UA) NEGATIVE mg/dL (NEGATIVE) 08/10/19 12:50 Urine Ketones NEGATIVE mg/dL (NEGATIVE) 08/10/19 12:50 Urine Blood SMALL (NEGATIVE) H 08/10/19 12:50 Urine Nitrite NEGATIVE (NEGATIVE) 08/10/19 12:50 Urine Bilirubin NEGATIVE (NEGATIVE) 08/10/19 12:50 Urine Urobilinogen NEGATIVE mg/dL (<2.0) 08/10/19 12:50 Ur Leukocyte Esterase LARGE (NEGATIVE) H 08/10/19 12:50 Urine Ascorbic Acid NEGATIVE (NEGATIVE) 08/10/19 12:50 Urine Opiates Screen NEGATIVE 08/10/19 12:50 Urine Methadone Screen NEGATIVE 08/10/19 12:50 Ur Barbiturates Screen NEGATIVE 08/10/19 12:50 Ur Phencyclidine Scrn NEGATIVE 08/10/19 12:50 Ur Amphetamines Screen NEGATIVE 08/10/19 12:50 U Benzodiazepines Scrn NEGATIVE 08/10/19 12:50 Urine Cocaine Screen NEGATIVE 08/10/19 12:50 U Marijuana (THC) Screen NEGATIVE 08/10/19 12:50 RPR NONREACTIVE (NONREACTIVE) 08/10/19 12:50 Blood Type A POSITIVE 08/10/19 12:50 Antibody Screen NEGATIVE 08/10/19 12:50 Plan Plan of Treatment: d/c home, f/up with [facility] in 4 wks for PP check Time Spent: Less than 30 Minutes
== END 2019-08-12 14:30 | disposition home or self-care (01) | DRG 807 ==
LOC: LC 12:10 → LR 12:37 → 2S 08-11 00:56
PROVIDERS: ADMIT Student in an Organized Health Care Education/Training Program; ATTEND Student in an Organized Health Care Education/Training Program
PROC: 10E0XZZ Delivery of Products of Conception, External Approach (ICD-10-PCS; principal; 2019-08-10)
DX: O99.824 Streptococcus B carrier state complicating childbirth (principal); Z37.0 Single live birth; O75.89 Other specified complications of labor and delivery; O69.81X0 Labor and delivery complicated by cord around neck, without compression, not applicable or unspecified; O77.0 Labor and delivery complicated by meconium in amniotic fluid; Z3A.40 40 weeks gestation of pregnancy
CPT/HCPCS: 1967; 36415; 59025; 80307; 81005; 85025; 85027; 86592; 86850; 86900; 86901; J2405; J2540; J2590; J3010; J3490; J7060; S0028